=== PATIENT | female | born 1940 | race Caucasian/White ===

== ENCOUNTER 2017-11-06 08:48 | Day surgery (SDC) | payer MEDICARE, BC ==
[~2017-11-06 08:48] MED LIST: ALBU90OI INH; ALPR.5 PO; AMLO5 PO; ASPI81CH PO; ATOR10 PO; Advair Hfa 230-12 GM INH; CHOL10002 PO; CLOP75 PO; CYAN500 PO; Coreg12.5 MG PO; DEXA4 PO; FERROUS SULFATE PO; FISH OIL 1,2001 EAC1 PO; HYDR1TAB94 PO; METO10; MULTIVITAMIN PO; NITR.4SL SL; NITRSPRAY; NYST237S SS; OLAN10 PO; OXYGEN USE; Prilosec Otc20 MG PO; RANI150 PO; Sudogest30 MG PO; TEMA30 PO; TIOT18 INH; [UNRECOGNIZED DRUG - OTHER] PO
== END 2017-11-06 23:06 | disposition home or self-care (01) ==
LOC: MOI MAM 08:48
PROC: 0HBT3ZX Excision of Right Breast, Percutaneous Approach, Diagnostic (ICD-10-PCS; principal; 2017-11-06)
DX: D24.1 Benign neoplasm of right breast (principal); R92.0 Mammographic microcalcification found on diagnostic imaging of breast; C50.212 Malignant neoplasm of upper-inner quadrant of left female breast; N60.21 Fibroadenosis of right breast
CPT/HCPCS: 19081; 88305

== ENCOUNTER 2018-05-06 10:01 | Day surgery (SDC) | payer MEDICARE, BC ==
[~2018-05-06] VITALS: Ht 165.1 cm; Wt 48.1 kg
[2018-05-06] MEDS ORDERED: LETR2.5 (10:52)
== END 2018-05-06 12:25 | disposition home or self-care (01) ==
LOC: ORSCSDS 10:01
PROVIDERS: Surgery
PROC: 0DJ08ZZ Inspection of Upper Intestinal Tract, Via Natural or Artificial Opening Endoscopic (ICD-10-PCS; principal; 2018-05-06 11:15)
DX: R13.10 Dysphagia, unspecified (principal); F17.210 Nicotine dependence, cigarettes, uncomplicated; I25.10 Atherosclerotic heart disease of native coronary artery without angina pectoris; I25.2 Old myocardial infarction; I10 Essential (primary) hypertension; J44.9 Chronic obstructive pulmonary disease, unspecified; E78.00 Pure hypercholesterolemia, unspecified; Z79.899 Other long term (current) drug therapy; K44.9 Diaphragmatic hernia without obstruction or gangrene
CPT/HCPCS: J1642; J7120

== ENCOUNTER 2022-06-06 10:05 | Day surgery (SDC) | payer MEDICARE, BC ==
[~2022-06-06 10:05] MED LIST changes: +LETR2.5
== END 2022-06-13 23:46 | disposition home or self-care (01) ==
LOC: MOI MAM 10:05
DX: D05.12 Intraductal carcinoma in situ of left breast (principal); Z85.3 Personal history of malignant neoplasm of breast; Z17.0 Estrogen receptor positive status [ER+]
CPT/HCPCS: 19081; 88305; 88360; A4648

== ENCOUNTER 2022-06-13 10:01 | Day surgery (SDC) | payer MEDICARE, BC ==
[2022-06-19] MEDS ORDERED: NEBI5 PO (11:22)
== END 2022-06-19 23:24 | disposition home or self-care (01) ==
LOC: MOI MAM 10:01
DX: D05.12 Intraductal carcinoma in situ of left breast (principal)
CPT/HCPCS: 19281; A4648

== ENCOUNTER → 2022-09-18 | Outpatient (CLI) | payer MEDICARE, BC ==
[~2022-09-18] MED LIST changes: -LETR2.5; +LETR2.5 PO; +NEBI5 PO
[2022-09-18 10:26] LABS: Albumin, Blood 3.7 g/dL (3.4-5.0); Albumin/Globulin Ratio 1.2 (0.8-1.8); Bilirubin, Total 0.3 mg/dL (0.1-1.0); Bun/Creatinine Ratio 12.7 (12.0-20.0); Calcium, Blood 9.4 mg/dL (8.5-10.1); Creatinine, Blood 0.71 mg/dL (0.40-1.00); Potassium, Blood 3.5 mmol/L (3.5-5.5); Total Protein, Blood 6.7 g/dL (6.4-8.2)
== END | disposition home or self-care (01) ==
LOC: LAB SHORT 09:20 → LAB 09:20
PROVIDERS: Nurse Practitioner
DX: C50.919 Malignant neoplasm of unspecified site of unspecified female breast (principal)
CPT/HCPCS: 80053